=== PATIENT | male | born 1970 | race African-American/Black ===

== ENCOUNTER 2016-05-03 01:27 | Emergency (ER) | payer OTHER | END 2016-05-03 02:58 | disposition left against medical advice (07) | LOC: M ED 01:27 | DX: M54.5 Low back pain (principal); Z53.8 Procedure and treatment not carried out for other reasons ==

== ENCOUNTER 2016-06-17 23:19 | Emergency (ER) | payer OTHER ==
[~2016-06-17] VITALS: Ht 182.9 cm; Wt 87.5 kg
[2016-06-17] MEDS ORDERED: D31000TA PO (23:51)
[2016-06-17] MEDS ORDERED: TOPI200T4 PO (23:51)
[2016-06-17] MEDS ORDERED: B2100TAB PO (23:51)
[2016-06-17] MEDS ORDERED: BIMA01SOL OU (23:51)
[2016-06-17] MEDS ORDERED: LOPE2TAB5 PO (23:51)
[2016-06-17] MEDS ORDERED: GLUC1CAP9 PO (23:51)
[2016-06-17] MEDS ORDERED: ONDA4TAB6 PO (23:51)
[2016-06-17] MEDS ORDERED: TOPI1CAP10 PO (23:51)
[2016-06-17] MEDS ORDERED: NADO20TA PO (23:51)
[2016-06-17] MEDS ORDERED: MELO15TA4 PO (23:51)
[2016-06-17] MEDS ORDERED: ALPH0.156 OU (23:51)
[2016-06-18] MEDS ORDERED: NS 1,000 ML IV ONE (02:00)
[2016-06-18 04:47] VITALS: BP 130/81
== END 2016-06-18 04:40 | disposition home or self-care (01) ==
LOC: M ED 06-18 00:56
DX: K52.9 Noninfective gastroenteritis and colitis, unspecified (principal); I10 Essential (primary) hypertension; K21.9 Gastro-esophageal reflux disease without esophagitis; Z79.899 Other long term (current) drug therapy